=== PATIENT | male | born 1970 | race Caucasian/White ===

== ENCOUNTER 2018-04-06 21:48 | Emergency (ER) | payer BC ==
--- OUTSIDE RECORDS SUMMARY | 2018-04-06 21:49 | XMS REPORT | Clinical Summary ---
:1970 Author Organization [facility] Address [address] [place] [id number] Care Team Providers Name Role Phone Asked, No Pcp Primary Care Provider Unavailable Allergies Not on File Current Medications Not on file Active Problems Not on file Encounters Date Type Specialty Care Team Description 08/31/2017 Office Visit General Surgery Julio Razo, Splenomegaly ( Primary Dx) MD after 04/05/2017 Social History Tobacco Use Types Packs/Day Years Used Date Never Assessed Sex Assigned at Date Recorded Not on file Last Filed Vital Signs Not on file Plan of Treatment Health Maintenance Due Date Last Done Comments INFLUENZA VACCINE 02/07/2018 Results Not on fileafter 04/05/2017 Insurance Payer Benefit Plan / Group Subscriber ID Type Phone Address BCBS BCBS CHOICE PPO/FEDERAL EMPL PPO xxxxxxxxxxxx PPO Home: Natasha vazquez [phone] [facility] [place] [id number]
[2018-04-06 22:43] LABS: Protime INR 1.26
[2018-04-06 22:45] LABS: Absolute Lymphocytes (CBC) 0.4 K/uL (0.7-4.9); Absolute Monocytes 0.3 K/uL (0.1-1.3); Absolute Neutrophil 1.2 K/uL (1.8-8.0); Basophils % 1.3 % (0-1.3); Eosinophils % 9.3 % (0-4.4); Lymphocytes % 18.4 % (15.3-44.8); MCV 88.6 fL (80-100); MPV 7.6 fL (7.6-11.3); Monocytes % 14.9 % (3.3-12.3); RBC Red Blood Cell Count 3.84 M/uL (4.33-5.43)
[2018-04-06 23:01] LABS: ALT/SGPT 19 U/L (12-78); AST/SGOT 28 U/L (15-37); Alkaline Phosphatase 93 U/L (45-117); BUN Blood Urea Nitrogen 8 mg/dL (7-18); Bicarbonate 27 mmol/L (21-32); Bilirubin Direct 0.4 mg/dL (0-0.2); Bilirubin Total 1.1 mg/dL (0.2-1.0); Glucose Level 128 mg/dL (74-106); Magnesium 2.1 mg/dL (1.8-2.4); NT PRO-BNP 45 pg/mL (<125); Potassium 4.1 mmol/L (3.5-5.1); Protein, Total 5.9 g/dL (6.4-8.2); Sodium Level 145 mmol/L (136-145); Troponin (Emerg Dept Use Only) < 0.02 ng/mL (0.0-0.045)
[2018-04-06 23:32] LABS: Blood Morphology Comment NOT SEEN (NOT SEEN); Platelet Estimate DECR; Urine White Blood Cell Casts OK
[2018-04-07] MEDS ORDERED: METHYLPREDNISOLONE 125 MG INJ ONE (00:15)
[2018-04-07] MEDS ORDERED: IPRATROPIUM BROM 0.5MG/2.5ML ONE (00:15)
[2018-04-07] MEDS ORDERED: ALBUTEROL 2.5 MG/3 ML NEB SOL ONE (00:15)
--- NOTE | 2018-04-07 00:47 | EDPHYS ---
Physician Documentation [facility] Name: Lamont Levy Age: 47 yrs Sex: Male : 1970 Arrival Date: 04/06/2018 Time: 21:48 Bed 14 Private MD: ED Physician Edmar Lee HPI: 04/06 22:15 This 47 yrs old Male presents to ER via Ambulatory with complaints of Leg cp Swelling. 22:15 The patient presents with pain, that is acute, swelling, tenderness. The complaints cp affect the left lower leg and right lower leg. Context: the patient can fully bear weight, the patient is able to ambulate, with mild difficulty. Onset: The symptoms/episode began/occurred 3 week(s) ago, and became worse 3 day(s) ago. Associated signs and symptoms: Pertinent negatives fever, numbness, rash, warmth, chest pain, shortness of breath. Treatment prior to arrival includes: no previous treatment. Severity of symptoms: in the emergency department the symptoms are unchanged. Historical: - Allergies: 21:56 NSAIDS; aj - Home Meds: 21:56 benazepril oral oral [Active]; gabapentin oral oral [Active]; Omeprazole Oral [Active]; aj - PMHx: 21:56 sarcoidosis; Hypertension; aj - PSHx: 21:56 Tonsillectomy; knee sx; aj - Immunization history:: Adult Immunizations up to date. - Social history:: Smoking status: Patient/guardian denies using tobacco. - Ebola Screening: : Patient negative for fever greater than or equal to 101.5 degrees Fahrenheit, and additional compatible Ebola Virus Disease symptoms Patient denies exposure to infectious person Patient denies travel to an Ebola-affected area in the 21 days before illness onset No symptoms or risks identified at this time. ROS: 22:20 Constitutional: Negative for body aches, chills, fever, poor PO intake. cp 22:20 Eyes: Negative for injury, pain, redness, and discharge. cp 22:20 ENT: Negative for drainage from ear(s), ear pain, sore throat, difficulty swallowing, difficulty handling secretions. 22:20 Cardiovascular: Positive for edema, Negative for chest pain, palpitations. 22:20 Respiratory: Negative for cough, shortness of breath, wheezing. 22:20 Abdomen/GI: Negative for abdominal pain, nausea, vomiting, and diarrhea, constipation, black/tarry stool, rectal bleeding. 22:20 Back: Negative for pain at rest, pain with movement, radiated pain. 22:20 : Negative for urinary symptoms, testicular pain 22:20 Skin: Negative for rash. 22:20 Neuro: Negative for altered mental status, headache, syncope, near syncope, weakness. 22:20 All other systems are negative. Exam: 22:28 Constitutional: The patient appears in no acute distress, alert, awake, cp non-diaphoretic, non-toxic, well developed, well nourished, overweight 22:28 Head/Face: Normocephalic, atraumatic. Eyes: Pupils equal round and reactive to light, cp extra-ocular motions intact. Lids and lashes normal. Conjunctiva and sclera are non-icteric and not injected. Cornea within normal limits. Periorbital areas with no swelling, redness, or edema. ENT: Nares patent. No nasal discharge, no septal abnormalities noted. Tympanic membranes are normal and external auditory canals are clear. Oropharynx with no redness, swelling, or masses, exudates, or evidence of obstruction, uvula midline. Mucous membranes moist. Neck: Trachea midline, no thyromegaly or masses palpated, and no cervical lymphadenopathy. Supple, full range of motion without nuchal rigidity, or vertebral point tenderness. No Meningismus. Chest/axilla: Normal chest wall appearance and motion. Nontender with no deformity. No lesions are appreciated. 22:28 Cardiovascular: Rate: normal, Rhythm: regular, Edema: ankle edema, that is moderate, JVD: is not appreciated. 22:28 Respiratory: the patient does not display signs of respiratory distress, Respirations: normal, no use of accessory muscles, no retractions, no splinting, no tachypnea, Breath sounds: are clear throughout, no decreased breath sounds, no stridor, no wheezing. 22:28 Abdomen/GI: Inspection: obese Bowel sounds: active, all quadrants, Palpation: abdomen is soft and non-tender, in all quadrants, rebound tenderness, is not appreciated, voluntary guarding, is not appreciated, involuntary guarding, is not appreciated. 22:28 Back: pain, is absent, ROM is normal. 22:28 Musculoskeletal/extremity: Exam is negative for bony tenderness, decreased range of motion, deformity. 22:28 Skin: cellulitis, is not appreciated, no rash present. 22:28 Neuro: Orientation: to person, place \T\ time. Mentation: lucid, able to follow commands, Cerebellar function: is grossly normal, Motor: moves all fours, strength is normal, Sensation: no obvious gross deficits. Vital Signs: 21:56 BP 142 / 77; Pulse 83; Resp 17; Temp 98.4; Pulse Ox 99% on R/A; Weight 123.83 kg; aj Height 5 ft. 10 in. (177.80 cm); 22:55 BP 129 / 49; Pulse 78; Resp 18; Pulse Ox 100% on R/A; ea 04/07 00:45 BP 134 / 69; Pulse 72; Resp 18; Temp 97.7(TE); Pulse Ox 99% on R/A; Pain 0/10; ea 04/06 21:56 Body Mass Index 39.17 (123.83 kg, 177.80 cm) aj MDM: 04/06 21:59 Patient medically screened. cp 22:00 Differential diagnosis: cellulitis, CHF, renal failure, hepatic failure, DVT. 04/07 00:45 Data reviewed: vital signs, nurses notes, lab test result(s), EKG, radiologic studies, cp plain films, ultrasound. 00:45 Test interpretation: by ED physician or midlevel provider: ECG, plain radiologic cp studies. Counseling: I had a detailed discussion with the patient and/or guardian regarding: the historical points, exam findings, and any diagnostic results supporting the discharge/admit diagnosis, lab results, radiology results, the need for outpatient follow up, a family practitioner, a olericulturist, to return to the emergency department if symptoms worsen or persist or if there are any questions or concerns that arise at home. Response to treatment: the patient's symptoms have mildly improved after treatment, and as a result, I will discharge patient. ED course: VSS. Discussed results of labs. Patient stable, non-toxic appearance and no signs of distress. Will discharge to home for continued monitoring. 04/06 22:13 Order name: Basic Metabolic Panel 04/06 22:13 Order name: CBC with Diff 04/06 22:13 Order name: LFT's; Complete Time: 23:26 04/06 23:26 Interpretation: Normal except: BILIT 1.1; BILID 0.4; TP 5.9; ALB 3.0; A/G 1.0. cp 04/06 22:13 Order name: Magnesium; Complete Time: 23:26 cp 04/06 22:13 Order name: NT PRO-BNP; Complete Time: 23:26 cp 04/06 22:13 Order name: PT-INR; Complete Time: 23:26 cp 04/06 22:13 Order name: Troponin (emerg Dept Use Only); Complete Time: 23:26 cp 04/06 22:13 Order name: XRAY Chest (1 view) cp 04/06 22:13 Order name: US Extremity Venous W Compression Blue cp 04/06 22:13 Order name: Basic Metabolic Panel; Complete Time: 23:26 EDMS 04/06 23:44 Interpretation: Normal except: CL 110; GLUC 128; GFR 79. 04/06 22:13 Order name: CBC with Automated Diff; Complete Time: 23:44 EDMS 04/06 23:26 Interpretation: Normal except: WBC 2.2; RBC 3.84; HGB 11.9; HCT 34.0; PLT 60; MN% 14.9; cp EOSINOPHIL % 9.3; NEUT A 1.2; LYMA 0.4. 04/06 23:33 Order name: CBC Smear Scan; Complete Time: 23:44 EDMS 04/06 23:49 Order name: AMMONIA 04/06 23:50 Order name: Ammonia; Complete Time: 00:26 EDMS 04/07 00:27 Interpretation: Abnormal: JEAN CLAUDE 60; Reviewed. 04/06 22:13 Order name: EKG; Complete Time: 22:14 04/06 22:13 Order name: Cardiac monitoring; Complete Time: 22:51 cp 04/06 22:13 Order name: EKG - Nurse/Tech; Complete Time: 22:51 cp 04/06 22:13 Order name: IV Saline Lock; Complete Time: 22:51 cp 04/06 22:13 Order name: Labs collected and sent; Complete Time: 22:51 cp 04/06 22:13 Order name: O2 Per Protocol; Complete Time: 22:51 cp 04/06 22:13 Order name: O2 Sat Monitoring; Complete Time: 22:51 cp EC/28 22:50 Rate is 77 beats/min. Rhythm is regular. ME interval is normal. QRS interval is normal. cp QT interval is normal. Interpreted by me. Reviewed by me. Administered Medications: No medications were administered Disposition: 04/07 06:38 Co-signature as Attending Physician, Edmar Lee MD I agree with the assessment and [facility] plan of care. Disposition: 04/07/18 00:46 Discharged to Home. Impression: Edema, unspecified, Liver disorders in diseases classified elsewhere. - Condition is Stable. - Discharge Instructions: Edema. - Prescriptions for Lasix 20 mg Oral Tablet - take 1 tablet by ORAL route once daily; 20 tablet. Lactulose 10 gram/15 mL Oral Solution - take 30 milliliter by ORAL route once daily; 300 milliliter. - Medication Reconciliation Form, Thank You Letter, Antibiotic Education, Prescription Opioid Use form. - Follow up: Private Physician; When: 2 - 3 days; Reason: Recheck today's complaints. - Problem is new. - Symptoms have improved. Signatures: Dispatcher [employer] EDSandhya Mendes, RN Edmar Castanon MD MD cha Page, Corey, PA PA Shireen Mares RN RN ea Corrections: (The following items were deleted from the chart) 00:27 00:26 Reviewed. cp cp 00:59 00:46 04/07/2018 00:46 Discharged to Home. Impression: Edema, unspecified; Liver ea disorders in diseases classified elsewhere. Condition is Stable. Prescriptions for Lasix 20 mg Oral Tablet - take 1 tablet by ORAL route once daily; 20 tablet, Lactulose 10 gram/15 mL Oral Solution - take 30 milliliter by ORAL route once daily; 300 milliliter. and Forms are Medication Reconciliation Form, Thank You Letter, Antibiotic Education, Prescription Opioid Use. Follow up: Private Physician; When: 2 - 3 days; Reason: Recheck today's complaints. Problem is new. Symptoms have improved. cp
--- NOTE | 2018-04-07 00:47 | ER ---
Nurse's Notes [facility] Name: Lamont Levy Age: 47 yrs Sex: Male : 1970 Arrival Date: 04/06/2018 Time: 21:48 Bed 14 Private MD: Diagnosis: Edema, unspecified;Liver disorders in diseases classified elsewhere Presentation: 04/06 21:54 Presenting complaint: Patient states: Bilateral leg swelling for 3 days. Transition of care: patient was not received from another setting of care. Onset of symptoms was April 03, 2018. Risk Assessment: Do you want to hurt yourself or someone else? Patient reports no desire to harm self or others. Initial Sepsis Screen: Does the patient meet any 2 criteria? No. Patient's initial sepsis screen is negative. Does the patient have a suspected source of infection? No. Patient's initial sepsis screen is negative. Care prior to arrival: None. 21:54 Method Of Arrival: Ambulatory 21:54 Acuity: LAYA 3 aj Triage Assessment: 21:56 General: Appears in no apparent distress. comfortable, Behavior is calm, cooperative, aj appropriate for age. Pain: Denies pain. Neuro: Level of Consciousness is awake, alert, obeys commands, Oriented to person, place, time, situation, Appropriate for age. Cardiovascular: Edema is 1+ to left midcalf, left ankle, left foot, right midcalf, right ankle and right foot. Respiratory: Airway is patent Respiratory effort is even, unlabored, Respiratory pattern is regular, symmetrical. Derm: Skin is intact, is healthy with good turgor, Skin is pink, warm \\T\\ dry. normal. Historical: - Allergies: 21:56 NSAIDS; aj - Home Meds: 21:56 benazepril oral oral [Active]; gabapentin oral oral [Active]; Omeprazole Oral [Active]; aj - PMHx: 21:56 sarcoidosis; Hypertension; aj - PSHx: 21:56 Tonsillectomy; knee sx; aj - Immunization history:: Adult Immunizations up to date. - Social history:: Smoking status: Patient/guardian denies using tobacco. - Ebola Screening: : Patient negative for fever greater than or equal to 101.5 degrees Fahrenheit, and additional compatible Ebola Virus Disease symptoms Patient denies exposure to infectious person Patient denies travel to an Ebola-affected area in the 21 days before illness onset No symptoms or risks identified at this time. Screenin:12 Abuse screen: Denies threats or abuse. Nutritional screening: No deficits noted. ea Tuberculosis screening: No symptoms or risk factors identified. Fall Risk None identified. Assessment: 22:08 General: Appears in no apparent distress. Behavior is calm, cooperative, appropriate ea for age. Pain: Complains of pain in low back area Pain currently is 3 out of 10 on a pain scale. Quality of pain is described as aching. Neuro: Level of Consciousness is awake, alert, obeys commands, Oriented to person, place, time, situation. Cardiovascular: Heart tones S1 S2 present Patient's skin is warm and dry. Respiratory: Airway is patent Respiratory effort is even, unlabored, Respiratory pattern is regular, symmetrical, Breath sounds are clear bilaterally. GI: No signs and/or symptoms were reported involving the gastrointestinal system. : No signs and/or symptoms were reported regarding the genitourinary system. EENT: No signs and/or symptoms were reported regarding the EENT system. Derm: Skin is dry, Skin is normal, Skin temperature is warm 1 + pitting edema noted to [place] lower extremities. Weeping noted to right lower extremity. Pt states " I have had swelling for the last couple days but the leaking started today". 23:16 Reassessment: Patient and/or family updated on plan of care and expected duration. Pain ea level reassessed. Patient is alert, oriented x 3, equal unlabored respirations, skin warm/dry/pink. 04/07 00:56 Reassessment: Patient and/or family updated on plan of care and expected duration. Pain ea level reassessed. Patient is alert, oriented x 3, equal unlabored respirations, skin warm/dry/pink. Discharge instructions given to patient, verbalized the understanding of instruction. Patient states feeling better. Patient states symptoms have improved. Vital Signs: 04/06 21:56 BP 142 / 77; Pulse 83; Resp 17; Temp 98.4; Pulse Ox 99% on R/A; Weight 123.83 kg; aj Height 5 ft. 10 in. (177.80 cm); 22:55 BP 129 / 49; Pulse 78; Resp 18; Pulse Ox 100% on R/A; ea 04/07 00:45 BP 134 / 69; Pulse 72; Resp 18; Temp 97.7(TE); Pulse Ox 99% on R/A; Pain 0/10; ea 04/06 21:56 Body Mass Index 39.17 (123.83 kg, 177.80 cm) ED Course: 04/06 21:48 Patient arrived in ED. ds1 21:55 Triage completed. aj 21:56 Arm band placed on right wrist. Patient placed in an exam room. aj 21:59 Edmar Jose PA is PHCP. cp 21:59 Edmar Lee MD is Attending Physician. cp 22:00 Shireen Hummel, RN is Primary Nurse. ea 22:12 Patient has correct armband on for positive identification. Bed in low position. Call ea light in reach. Side rails up X 1. 22:20 Inserted saline lock: 20 gauge in right antecubital area, using aseptic technique. ea Blood collected. 22:25 XRAY Chest (1 view) In Process Unspecified. EDMS 22:51 Ultrasound completed. Patient tolerated well. cy 22:51 US Extremity Venous W Compression [place] In Process Unspecified. EDMS 04/07 00:02 AMMONIA Sent. mw2 00:55 No provider procedures requiring assistance completed. IV discontinued, intact, ea bleeding controlled. Administered Medications: No medications were administered Outcome: 00:46 Discharge ordered by . cp 00:56 Condition: improved ea 00:56 Discharge instructions given to patient, Instructed on discharge instructions, follow up and referral plans. medication usage, Demonstrated understanding of instructions, follow-up care, medications, Prescriptions given X 2. 00:58 Discharged to home ambulatory. ea 00:59 Patient left the ED. ea Signatures: Dispatcher [employer] EDVT Sandhya Feliciano, RN Tsering Nguyen ds1 Edmar oJse PA PA cp Antunez, Elena, RN Chante Cullen ea, MyKena mw2
--- NOTE | 2018-04-07 07:46 | RAD REPORT ---
EXAM DESCRIPTION: US - Extrem Venous W Compress Blue - 04/06/2018 10:51 pm CLINICAL HISTORY: Bilateral leg pain and swelling Preliminary findings provided at the time of the study COMPARISON: None. TECHNIQUE: Real-time sonographic evaluation of the bilateral lower extremity common femoral, superfi cial femoral, popliteal and posterior tibial veins was performed. FINDINGS: Normal compressibility, flow augmentation, phasic flow and spontaneous flow are identified in the left and right lower extremity common femoral, superficial femoral, popliteal and posterior t ibial veins. No intraluminal filling defects seen. IMPRESSION: No DVT in either lower extremity.
--- NOTE | 2018-04-07 08:24 | RAD REPORT ---
EXAM DESCRIPTION: RAD - Chest Single View - 04/06/2018 10:24 pm CLINICAL HISTORY: Shortness of breath, leg pain and swelling COMPARISON: August 18 TECHNIQUE: AP portable chest image was obtained 2218 hours . FINDINGS: Lung volumes are low. This accentuates lung markings. True change from the comparison not suspected. No focal lung parenchymal process. Heart and vasculature are normal. No measurable pleural effusion and no pneumothorax. No gross bony abnormality seen. No acute aortic findings suspected. IMPRESSION: Shallow inspiration film without acute cardiopulmonary finding. No significant change from comparison.
--- NOTE | 2018-04-08 06:46 | EKG ---
Test Date: 2018-04-06 Test Time: 22:46:19 Orthopedic Dentist: BP MEASUREMENT RESULTS: Intervals: Rate: 77 TN: 178 QRSD: 92 QT: 424 QTc: 479 [place]: P: 22 TN: 178 QRS: -15 T: 3 INTERPRETIVE STATEMENTS: Normal sinus rhythm Moderate voltage criteria for LVH, may be normal variant Borderline ECG Compared to ECG 08/18/2017 22:24:38 No significant changes Electronically Signed On 04-08-18 06:45:20 CDT by Pavan Sanchez
== END 2018-04-07 00:59 | disposition home or self-care (01) ==
LOC: ER 21:48
DX: K77 Liver disorders in diseases classified elsewhere (principal); I10 Essential (primary) hypertension; Z88.6 Allergy status to analgesic agent
CPT/HCPCS: 36415; 71045; 80048; 80076; 82140; 83735; 83880; 84484; 85025; 85610; 93005; 93970; 99284; J2930

== ENCOUNTER 2020-02-05 06:43 | Day surgery (SDC) | payer OTHER ==
[2020-02-03 13:32] LABS: Absolute Lymphocytes (CBC) 0.5 K/uL (0.7-4.9); Basophils % 1.1 % (0-1.3); Hematocrit 37.9 % (39.6-49.0); Lymphocytes % 18.7 % (15.3-44.8); RBC Red Blood Cell Count 4.36 M/uL (4.33-5.43)
[2020-02-03 13:46] LABS: Potassium 3.5 mmol/L (3.5-5.1)
[2020-02-03 14:23] LABS: Anisocytosis 1+; Blood Morphology Comment NOTED (NOT SEEN); Platelet Estimate DECR; Urine White Blood Cell Casts OK
--- OUTSIDE RECORDS SUMMARY | 2020-02-05 06:45 | XMS REPORT | Continuity of Care Document ---
:1970 Author Organization [facility] t Address [address] [place] [address] Care Team Providers Name Role Phone Andra Booth MD Primary Care Physician Grace Hernandez MD Attending Clinician Zaida Javier Attending Clinician Payers Payer Name Policy Type Policy Number Effective Date Expiration Date S nerissa AETNAAETNA PPO xxxxxxxxxx 2019 [place] OPEN 00:00:00 [place] CHOICExxxxxxxxxx 2019-Present PPO Problems This patient has no known problems. Allergies, Adverse Reactions, Alerts Allergy Allergy Status Severity Reaction(s) Onset Inactive Treating Comm ents Source Name Type Date Date Clinician Ibuprofe Propensi Active Rash [place] ty to 01-27 [facility] adverse 00:00: st reaction 00 s to drug Social History Social Habit Start Date Stop Date Quantity Comments Source Sex Assigned At [place] M ethodist Cigarettes smoked 2019-11-05 2019-11-05 [place] [facility] current (pack per 00:00:00 00:00:00 day) - Reported Cigarette 2019-11-05 2019-11-05 [place] Method ist pack-years 00:00:00 00:00:00 Alcohol intake 2019-11-05 2019-11-05 Lifetime [place] [facility] thodist 00:00:00 00:00:00 non-drinker (finding) History of tobacco 1989-02-07 1995-06-09 Current smoker Juan rhodes [facility] use 00:00:00 00:00:00 Smoking Status Start Date Stop Date Source Former smoker 2019-11-05 00:00:00 2019-11-05 00:00:00 Rakan Su Medications Ordered Filled Start Stop Current Ordering Indication Dosage Frequency Signature Comments Components Source Medication Medication Date Date Medication? Clinician (SIG) Name Name methylPREDN Yes Chronic 40mg Venkatesh ston ISolone 11-04 left [facility] acetate 15:30: shoulder st (DEPO-MEDRO 00 pain L) injection 40 mg meloxicam 15mg QD Take 1 [place] on (Mobic) 15 11-04 tablet (15 Me thodi mg tablet 00:00: 23:59 mg total) st 00 :00 by mouth daily. Flucelvax Yes ADM 0.5ML Venkatesh ston Quad 3-11 IM UTD Methodi 00:00: st 60 mcg (15 00 mcg x 4)/0.5 mL suspension KLOR-CON 10 2017-07 Yes 10meq QD Take 10 [place] 10 mEq CR 0-12 mEq by [facility] tablet 00:00: mouth st 00 daily. acetaminoph 2017-07 Yes 650mg Take 650 [place] en 0-12 mg by [facility] (TYLENOL) 00:00: mouth. st 650 MG 8 hr 00 tablet benazepril 2017-07 Yes 10mg QD Take 10 mg [place] (LOTENSIN) 0-01 by mouth Metho di 10 MG 00:00: daily. st tablet 00 furosemide Yes 20mg QD Take 20 mg [place] (LASIX) 20 9-29 by mouth Metho di mg tablet 00:00: daily. st 00 lactulose Yes TK 30 ML [place] (CHRONULAC) 9-29 PO D. Methodi 10 gram/15 00:00: st mL solution 00 gabapentin Yes 1 tablet Venkatesh ston (NEURONTIN) 9-10 BID x 3 Metho di 300 mg 00:00: days, then st capsule 00 1 tablet TID x 3 days. Increase by 300 mg starting at night time dose x 3 days. Goal 600 mg TID. omeprazole Yes 40mg Take 40 mg [place] (PriLOSEC) 5-30 by mouth. Meth melanie 40 MG 00:00: st capsule 00 Vital Signs Vital Name Observation Time Observation Value Comments Source Body height 2019-11-05 15:09:00 179.1 cm Rakan Su Body weight 2019-11-05 15:09:00 117.935 kg Rakan Su BMI 2019-11-05 15:09:00 36.78 kg/m2 Rakan Su Procedures Procedure Date / Time Performing Clinician Source Performed XR SHOULDER 2+ VW LEFT 2019-11-05 15:17:15 Sly Hernandez on [facility] [place] ARTHROCENTESIS 2019-11-05 14:50:00 Sly Hernandez Me thodist ASPIR&/INJ MAJOR JT/BURSA W/O Plan of Care Planned Activity Planned Date Details Comments Source Future Scheduled 2020-02-08 INFLUENZA VACCINE [place] [facility] Test 00:00:00 [code = INFLUENZA VACCINE] Future Scheduled 2018 COLONOSCOPY SCREENING [place] [facility] Test 00:00:00 [code = COLONOSCOPY SCREENING] Future Scheduled 2018 SHINGLES VACCINES [place] [facility] Test 00:00:00 (#1) [code = SHINGLES VACCINES (#1)] Encounters Start End Encounter Admission Attending Care Care Encounter Source Date/Time Date/Time Type Type Clinicians Facility Department ID 2019-11-05 2019-11-05 [facility] [id number] [place] 00:00:00 00:00:00 SLY [address] 2019-11-05 2019-11-05 [facility] [id number] [place] 00:00:00 00:00:[address] S[address] 2019-09-20 2019-09-20 Office [facility] [id number] 14:28:36 15:45:21 Visit [employer] [id number] [place] [id number] Professio [id number] nal 044 Office Building One Results Test Description Test Time Test Comments Results Result Sourc e Comments Large Joint 2019-10-10 Sly Hernandez MD [place] Arthrocentesis: 8 11/05/2019 3:29 Met adali shoulder, L 14:50:00 PMLarge Joint subacromial Arthrocentesis: bursa shoulder, L subacromial bursaConsent given by: patientTimeout: Immediately prior to procedure a time out was called to verify the correct patient, procedure, equipment, clinical support specialist and site/side marked as required Supporting DocumentationIndicatio ns: pain Procedure DetailsPreparation: Patient was prepped and draped in the usual sterile fashionUltrasound guided: noLocation: shoulder - L subacromial bursa Left side:Needle size: 22 GApproach: lateral
--- OUTSIDE RECORDS SUMMARY | 2020-02-05 06:45 | XMS REPORT | Clinical Summary ---
:1970 Author Organization [facility] Address [address] [place] [address] Care Team Providers Name Role Phone Andra Booth MD Primary Care Provider Allergies Active Allergy Reactions Severity Noted Date Comments Ibuprofen Rash High 01/27/2017 Medications Medication Sig Dispensed Refills Start Date End Date Status benazepril (LOTENSIN) Take 10 mg by 0 04/09/2018 Active 10 MG tablet mouth daily. furosemide (LASIX) 20 Take 20 mg by 0 04/07/2018 Active mg tablet mouth daily. gabapentin (NEURONTIN) 1 tablet BID x 3 0 03/19/2018 Active 300 mg capsule days, then 1 tablet TID x 3 days. Increase by 300 mg starting at night time dose x 3 days. Goal 600 mg TID. omeprazole (PriLOSEC) Take 40 mg by 0 12/06/2017 Active 40 MG capsule mouth. KLOR-CON 10 10 mEq CR Take 10 mEq by 0 04/20/2018 Active tablet mouth daily. lactulose (CHRONULAC) TK 30 ML PO D. 0 04/07/2018 Active 10 gram/15 mL solution acetaminophen Take 650 mg by 0 04/20/2018 Active (TYLENOL) 650 MG 8 hr mouth. tablet Flucelvax Quad ADM 0.5ML IM UTD 0 09/18/2019 Active 1156-7639 60 mcg (15 mcg x 4)/0.5 mL suspension meloxicam (Mobic) 15 Take 1 tablet 30 tablet 11 11/05/201910/09 Active mg tablet (15 mg total) by mouth daily. Hospital, Clinic, or Other Ordered Dose Route Frequency Start Date End Date Status Facility Administered Medication methylPREDNISolone acetate 40 mg IAtc once 11/05/2019 Active (DEPO-MEDROL) injection 40 mgIndications: Chronic left shoulder pain Active Problems Not on file Encounters Date Type Specialty Care Team Description 11/05/2019 Office Visit Orthopedic Surgery [facility], Chron ic left shoulder pain (Primary Dx); Impingement syn drome of left shoulder 11/05/2019 Travel after 02/04/2019 Family History Patient is adopted Relation Name Status Comments Father Mother Son 2 Alive Social History Tobacco Use Types Packs/Day Years Used Date Former Smoker Cigarettes 1 6 02/07/1989 - 1 08/10/1994 Smokeless Tobacco: Never Used Alcohol Use Drinks/Week oz/Week Comments Never Sex Assigned at Date Recorded Not on file Job Start Date Occupation Industry Not on file Not on file Not on file Travel History Travel Start Travel End No recent travel history available. Last Filed Vital Signs Vital Sign Reading Time Taken Comments Blood Pressure - - Pulse - - Temperature - - Respiratory Rate - - Oxygen Saturation - - Inhaled Oxygen Concentration - - Weight 118 kg (260 lb) 11/05/2019 3:09 PM CDT Height 179.1 cm (5' 10.5") 11/05/2019 3:09 PM CDT Body Mass Index 36.78 11/05/2019 3:09 PM CDT Plan of Treatment Health Maintenance Due Date Last Done Comments COLONOSCOPY SCREENING 2018 SHINGLES VACCINES (#1) 2018 INFLUENZA VACCINE 02/08/2020 Procedures Procedure Name Priority Date/Time Associated Comments Diagnosis XR SHOULDER 2+ VW LEFT Routine 11/05/2019 3:17 Chronic left R esults for this PM CDT shoulder pain procedure are in the results section. MA ARTHROCENTESIS Routine 11/05/2019 2:50 Chronic left Result s for this ASPIR&/INJ MAJOR PM CDT shoulder pain procedure are in JT/BURSA W/O US Impingement the results syndrome of left section. shoulder after 02/04/2019 Results XR Shoulder 2+ Vw Left (11/05/2019 3:17 PM CDT) Specimen Narrative Performed At This result has an attachment that is no t available. 3 views (AP, scapular Y, axillary) of the left shoulder(s) reveal no HM [facility] evidence of any fracture, dislocation, or any other ac akira osseous abnormalities. Performing Organization Address City/State/Zipcode Phone Number [facility] [address] [place] [address] Large Joint Arthrocentesis: shoulder, L subacromial bursa (11/05/2019 2:50 PM CDT) Narrative Performed At [facility], Tristan Edwards MD 11/05/2019 3: 29 PM Large Joint Arthrocentesis: shoulder, L subacromial bursa Consent given by: patient Timeout: Immediately prior to procedure a time out was called to verify the correct patient, procedure, equipmen t, cell support operator and site/side marked as required Supporting Documentation Indications: pain Procedure Details Preparation: Patient was prepped and ashely ped in the usual sterile fashion Ultrasound guided: no Location: shoulder - L subacromial bursa Left side: Needle size: 22 G Approach: lateral after 02/04/2019 Advance Directives For more information, please contact: [phone] Type Date Recorded 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
[2020-02-05] MEDS ORDERED: Ringers Lactate 1,000 ML IV ONE (07:25)
[2020-02-05] MEDS ORDERED: MIDAZOLAM HCL 2 MG/2 ML INJ ONE (07:26)
[2020-02-05] MEDS ORDERED: LIDOCAINE 2% MPF 5 ML VIAL ONE (07:26)
[2020-02-05] MEDS ORDERED: FENTANYL CITR 100 MCG/2 ML ONE ×3 (07:26→09:45)
[2020-02-05] MEDS ORDERED: propofoL 200 MG/20 ML VIAL IV ONE (07:26)
[2020-02-05] MEDS ORDERED: CEFAZOLIN/SWI 1gm 0 GM/0 ML SYR ONE (07:51)
[2020-02-05] MEDS ORDERED: BUPIVACAINE 0.5% PF 10 ML VIAL ONE (08:42)
[2020-02-05] MEDS ORDERED: CIPROFLOXACIN 400mg IV 400 MG/200 ML BAG IV ONE (08:49)
[2020-02-05] MEDS ORDERED: KETOROLAC 30 MG/ML INJ ONE (09:16)
[2020-02-05] MEDS ORDERED: dexAMETHasone 10 MG/ML VIAL ONE (09:16)
[2020-02-05] MEDS ORDERED: ONDANSETRON 4 MG/2 ML VIAL ONE (09:17)
[2020-02-05] MEDS ORDERED: SILVER SULFADIAZINE 1% 25 GM TOP ONE (09:28)
--- NOTE | 2020-02-05 09:58 | P.BOP ---
Preoperative diagnosis: ulcerated non healing wound with cellultitis with extensive masses Postoperative diagnosis: bilateral groin, perineum, suprapubic and sacrum, Primary procedure: 1. Wide excision of ulcerated masses right groin 25x4 cm Secondary procedure: 2. Wide excision of ulcerated masses left groin 15x5 cm Other procedure(s): 3. Wide excision of ulcerated masses perineum groin 4x4 cm Crystal Grower: Jane Mariano) Estimated blood loss: <50cc Specimen: ulcerated masses Findings: see dictation Anesthesia: General Complications: None Transferred to: Recovery Room Condition: Good
[2020-02-05] MEDS ORDERED: HYDROMORPHONE HCL 1 MG/ML INJ ONE (10:20)
[2020-02-05] MEDS ORDERED: HYDROCODONE/APAP 7.5/325 MG TAB ONE (11:12)
[2020-02-05] MEDS ORDERED: PROMETHAZINE INJ 25 MG/ML AMP ONE (11:16)
[2020-02-05 11:29] VITALS: TEMP 97.7
[2020-02-05 14:08] VITALS: BP 118/68; O2SAT 98
--- NOTE | 2020-02-05 22:10 | DS ---
Date of Discharge: 02/05/2020 Diagnoses: Ulcerated nonhealing wounds with cellulitis and extensive amount of masses over the groin , perineum, suprapubic and sacrum. Procedure: Wide excision of a nonhealing ulcerative masses over those areas as mentioned. Disposition: Home. Activity: As tolerated. Medications: Include hydrocodone q.4 hours p.r.n. pain and also Silvadene to apply over that area an d Bactrim DS p.o. b.i.d. The patient's family believes they can do the dressing changes. They were advised by any chance they cannot do so, then let us know so we can arrange for home health agencies to go there but he believe he can do it and we will see the patient in 1 week in my office. MAYRA Voice ID: [id number] Report ID: [id number]
--- NOTE | 2020-02-05 22:10 | OP ---
Date of Procedure: 02/05/2020 Surgeon: Andrew Ghotra MD Horticulture/Floriculture Teacher: Jane Childress. 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 Procedures: 1.Wide excision of ulcerative masses right groin 25 x 4 cm that include also the suprapubic area. 2.Wide excision of ulcerative mass of left groin, 15 x 5 cm. 3.Wide excision of ulcerative masses perineum, 4 x 4 cm. Anesthesia: General plus local. Indication: This is a case of a 49-year-old patient with multiple masses, bilateral groin is extensi ve, perineal area to perianal, little bit of sacrum too. He had biopsies done in one of the areas, p reviously shows HPV virus, but then after that the patient developed this cellulitis of the area with nonhealing wounds. It has been getting worse extending into the groin area, now this become an issu e of not just the previous masses, but now ulcerative masses also with the sign of infection. He wan ts that out. He understands the emergency situation we are going through the country, but at the brad e time is a source of infection and they are not healing and getting worse. So, he want a wide excis ion of those areas. I explained to him I may not be able to cover everything at the same time specia lly when he has history of low platelets. We are trying to remove the main once, the big once in lisa t area, all the once that looks with erythema and ulceration and this will leave a large open area th at will require dressing changes. He understand that. We might have to do this in stages. He under stand the benefits, alternatives, and risks of excision, which include, but not limited to infection, bleeding, damage to adjacent structures, anesthesia complication, nonhealing wound, [place], and even janiya th. He also understands this may not relieve his symptoms. He might need more than one surgical int ervention. He signed a consent. Description Of Procedure: The area of concern was marked by me on the patient in the holding room. The patient was brought to the operating room, placed in supine position. Anesthesia was done withou t complication. The perineum, perianal, sacrum and bilateral groin area and suprapubic were prepped and draped in sterile fashion. Local anesthesia was applied followed by wide excision of the area. Once again as we described above the size of it, there are so many all together that we have to remov e segments of a skin to be able to take those masses all in 1 unit, since individually it was too man y to do individually. So that left a large areas underneath and we obtained meticulous hemostasis of the area, profuse irrigation of local anesthetic. It was done over the suprapubic, right groin, lef t groin, perineal area and some of the sacrum. Some other areas may have to be postponed since we arellano ve a large area, we have bleeding and I believe at this moment it is what we can do in a safe fashion . That will take care of all the ulcerations to be make sure out to be checked for any ma lignancy too. He understood that in advance. The area was covered with silvadene and wet-to-dry maki ssing and covered with sterile dressings. The patient tolerated the procedure well. The patient was sent to recovery in stable condition. MAYRA Voice ID: [id number] Report ID: [id number]
== END 2020-02-05 12:30 | disposition home or self-care (01) ==
LOC: OR 06:43
PROVIDERS: ATTEND Surgery
PROC: 0JBB0ZZ Excision of Perineum Subcutaneous Tissue and Fascia, Open Approach (ICD-10-PCS; 2020-02-05)
PROC: 0HBAXZZ Excision of Inguinal Skin, External Approach (ICD-10-PCS; principal; 2020-02-05 09:00)
DX: R22.2 Localized swelling, mass and lump, trunk (principal); S31.104A Unspecified open wound of abdominal wall, left lower quadrant without penetration into peritoneal cavity, initial encounter; S31.103A Unspecified open wound of abdominal wall, right lower quadrant without penetration into peritoneal cavity, initial encounter; S31.501A Unspecified open wound of unspecified external genital organs, male, initial encounter; S31.000A Unspecified open wound of lower back and pelvis without penetration into retroperitoneum, initial encounter; L03.314 Cellulitis of groin; A63.0 Anogenital (venereal) warts; L82.1 Other seborrheic keratosis; I10 Essential (primary) hypertension; E66.01 Morbid (severe) obesity due to excess calories; Z68.38 Body mass index [BMI] 38.0-38.9, adult; Z88.6 Allergy status to analgesic agent; Z22.4 Carrier of infections with a predominantly sexual mode of transmission; Z11.59 Encounter for screening for other viral diseases
CPT/HCPCS: 11424; 93005; 85025; 80048; 36415; 88305; 71046; 11406 ×2; U0002; J2704; J2550; J2250; J3010 ×3; J1100; J1170; J7120; J2405; J0744; J0690

== ENCOUNTER 2020-02-22 21:14 | Emergency (ER) | payer OTHER, SELFPAY ==
--- OUTSIDE RECORDS SUMMARY | 2020-02-22 21:16 | XMS REPORT | Clinical Summary ---
:1970 Author Organization [facility] Address [address] [place] [address] Care Team Providers Name Role Phone Andra [...] ADM 0.5ML IM UTD 0 09/18/2019 Active 2554-0048 60 mcg (15 mcg x 4)/0.5 mL [...] drome of left shoulder 11/05/2019 Travel after 02/21/2019 Family History Patient is adopted Relation Name [...] 2018 SHINGLES VACCINES (#1) 2018 INFLUENZA VACCINE 03/10/2020 Procedures Procedure Name Priority Date/Time Associated Comments Diagnosis XR SHOULDER 2+ VW LEFT Routine 11/05/2019 3:17 Chronic left R esults for this PM CDT shoulder pain procedure are in the results section. CT ARTHROCENTESIS Routine 11/05/2019 2:50 Chronic left Result s for this ASPIR&/INJ MAJOR PM CDT shoulder pain procedure are in JT/BURSA W/O US Impingement the results syndrome of left section. shoulder after 02/21/2019 Results XR Shoulder 2+ Vw Left (11/05/2019 3:17 PM CDT) Specimen Narrative Performed At This result has an attachment that is no t available. 3 views (AP, scapular Y, axillary) of the left shoulder(s) reveal no HM [facility] evidence of any fracture, dislocation, or any other ac akira osseous abnormalities. Performing Organization Address City/State/Zipcode Phone Number [facility] [address] [place] [address] Large Joint Arthrocentesis: shoulder, L subacromial bursa (11/05/2019 2:50 PM CDT) Narrative Performed At [facility], Tristan Edwards MD 11/05/2019 3: 29 PM Large Joint Arthrocentesis: shoulder, L subacromial bursa Consent given by: patient Timeout: Immediately prior to procedure a time out was called to verify the correct patient, procedure, equipmen t, retail support specialist and site/side marked as required Supporting Documentation Indications: pain Procedure Details Preparation: Patient was prepped and ashely ped in the usual sterile fashion Ultrasound guided: no Location: shoulder - L subacromial bursa Left side: Needle size: 22 G Approach: lateral after 02/21/2019 Advance Directives For more information, please contact: [phone] Type Date Recorded 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
--- OUTSIDE RECORDS SUMMARY | 2020-02-22 21:17 | XMS REPORT | Continuity of Care Document ---
:1970 Author Organization [facility] t Address [address] [place] [address] Care Team Providers Name Role Phone Andra Booth MD Primary Care Physician Grace Hernandez MD Attending Clinician Zaida Javier Attending Clinician Payers Payer Name Policy Type Policy Number Effective Date Expiration Date S nerissa AETNAAETNA PPO xxxxxxxxxx 2019 [place] OPEN 00:00:00 Jain CHOICExxxxxxxxxx 2019-Present PPO Problems This patient has no known problems. Allergies, Adverse Reactions, Alerts Allergy Allergy Status Severity Reaction(s) Onset Inactive Treating Comm ents Source Name Type Date Date Clinician Ibuprofe Propensi Active Rash [place] ty to 01-27 [facility] adverse 00:00: st reaction 00 s to drug Social History Social Habit Start Date Stop Date Quantity Comments Source Sex Assigned At [place] [facility] Cigarettes smoked 2019-11-05 2019-11-05 [place] Jain current (pack per 00:00:00 00:00:00 day) - Reported Cigarette 2019-11-05 2019-11-05 [place] Method ist pack-years 00:00:00 00:00:00 Alcohol intake 2019-11-05 2019-11-05 Lifetime [place] [facility] 00:00:00 00:00:00 non-drinker (finding) History of tobacco 1989-02-07 1995-06-09 Current smoker Juan rhodes Jain use 00:00:00 00:00:00 Smoking Status Start Date [...] VW LEFT 2019-11-05 15:17:15 Sly Hernandez on Jain AL ARTHROCENTESIS 2019-11-05 14:50:00 Sly Hernandez [facility] ASPIR&/INJ MAJOR JT/BURSA W/O Plan of Care Planned Activity Planned Date Details Comments Source Future Scheduled 2020-03-10 INFLUENZA VACCINE [place] [facility] Test 00:00:00 [code = INFLUENZA VACCINE] Future Scheduled 2018 COLONOSCOPY SCREENING [place] [facility] Test 00:00:00 [code = COLONOSCOPY SCREENING] Future Scheduled 2018 SHINGLES VACCINES [place] [facility] Test 00:00:00 (#1) [code = SHINGLES VACCINES (#1)] Encounters Start End Encounter Admission Attending Care Care Encounter Source Date/Time Date/Time Type Type Clinicians Facility Department ID 2019-11-05 2019-11-[address] [facility] [id number] [address] [place] 00:00:00 00:00:[address] 2019-11-05 2019-11-05 [facility] [id number] [address] [place] 00:00:00 00:00:[address] 2019-09-20 2019-09-20 Office [facility] [id number] 14:28:36 15:45:21 Visit [facility] [id number] [place] [id number] Professio [phone] nal 044 Office Building One Results Test Description Test Time Test Comments Results Result Sourc e Comments Large Joint 2019-10-10 Sly Hernandez MD [place] Arthrocentesis: 8 11/05/2019 3:29 Met adali shoulder, L 14:50:00 PMLarge Joint subacromial Arthrocentesis: bursa shoulder, L subacromial bursaConsent given by: patientTimeout: Immediately prior to procedure a time out was called to verify the correct patient, procedure, equipment, phlebotomy support tech and site/side marked as required Supporting DocumentationIndicatio ns: pain Procedure DetailsPreparation: Patient was prepped and draped in the usual sterile fashionUltrasound guided: noLocation: shoulder - L subacromial bursa Left side:Needle size: 22 GApproach: lateral
[2020-02-22] MEDS ORDERED: LIDOCAINE VISCOUS 2% SOLN 15 ML UDC ONE (22:00)
[2020-02-22] MEDS ORDERED: DIAZEPAM 5 MG TABLET ONE (22:07)
--- NOTE | 2020-02-22 22:29 | ER ---
Nurse's Notes [facility] Name: Lamont Levy Age: 49 yrs Sex: Male : 1970 Arrival Date: 02/22/2020 Time: 21:17 Bed 18 Private MD: Diagnosis: Encounter for change or removal of surgical wound dressing Presentation: 02/21 21:36 Chief complaint: Patient states: "I had a group of warts removed on February 04, my vc has been packing it every night at seven, well tonight the packing is stuck and won't come out. I even tried getting in the shower to remove it and it wouldn't come out. I have a low platelet count so I was afraid of it bleeding to much if I kept pulling on it.". Coronavirus screen: At this time, the client does not indicate any symptoms associated with coronavirus-19. Ebola Screen: No symptoms or risks identified at this time. Initial Sepsis Screen: Does the patient meet any 2 criteria? HR > 90 bpm. No. Patient's initial sepsis screen is negative. Does the patient have a suspected source of infection? No. Patient's initial sepsis screen is negative. Risk Assessment: Do you want to hurt yourself or someone else? Patient reports no desire to harm self or others. Onset of symptoms was February 22, 2020 at 19:00. 21:36 Method Of Arrival: Ambulatory vc 21:36 Acuity: LAYA 4 vc Triage Assessment: 21:19 General: Appears in no apparent distress. uncomfortable, Behavior is cooperative, vc appropriate for age, anxious. 21:19 Pain: Complains of pain in groin, right femoral area, right inguinal area and right vc inner thigh Pain does not radiate. Historical: - Allergies: 21:42 NSAIDS; vc - Home Meds: 21:42 benazepril 5 mg oral tab 1 tab once daily [Active]; omeprazole 40 mg oral cpDR 1 cap vc once daily [Active]; - PMHx: 21:42 Hypertension; sarcoidosis; Low platelet; fatty liver; vc - Immunization history:: Adult Immunizations up to date, Last tetanus immunization: up to date < 5 years ago. - Social history:: Smoking status: Patient/guardian denies using tobacco, but has a distant history of tobacco abuse. Screenin:19 Abuse screen: Denies threats or abuse. Nutritional screening: No deficits noted. vc Tuberculosis screening: No symptoms or risk factors identified. Fall Risk None identified. Assessment: 21:20 General: Appears in no apparent distress. uncomfortable, obese, Behavior is vc cooperative, anxious. Pain: Complains of pain in right inguinal area and right femoral area and groin and right inner thigh Pain does not radiate. Pain currently is 7 out of 10 on a pain scale. Quality of pain is described as burning, sharp, Pain began suddenly, Is episodic. Neuro: Level of Consciousness is awake, alert, obeys commands, Oriented to person, place, time, situation, Appropriate for age. Cardiovascular: Capillary refill < 3 seconds Patient's skin is warm and dry. Respiratory: Airway is patent Respiratory effort is even, unlabored, Respiratory pattern is regular, symmetrical. GI: No signs and/or symptoms were reported involving the gastrointestinal system. : No signs and/or symptoms were reported regarding the genitourinary system. Derm: Wound noted right inner thigh Wound is post surgical wound. Vital Signs: 21:36 BP 137 / 100; Pulse 99; Resp 20; Temp 99.3; Pulse Ox 99% on R/A; Weight 120.2 kg; vc Height 5 ft. 10 in. (177.80 cm); 21:36 Body Mass Index 38.02 (120.20 kg, 177.80 cm) vc ED Course: 21:17 Patient arrived in ED. bp1 21:19 Arm band placed on right wrist. vc 21:19 Patient has correct armband on for positive identification. Placed in gown. Bed in low vc position. Call light in reach. Pulse ox on. NIBP on. 21:35 Ashley Guerra, BRENDA is Primary Nurse. vc 21:40 Triage completed. vc 21:42 [facility] Henderson [facility]C [facility] snw 21:42 Nixon Portillo MD is Attending Physician. snw 22:45 No provider procedures requiring assistance completed. Patient did not have IV access vc during this emergency room visit. Administered Medications: 22:44 Drug: Valium 5 mg Route: PO; ls4 02/22 03:16 Follow up: Response: No adverse reaction; Medication administered at discharge. vc 02/21 22:44 Drug: Viscous Lidocaine Liquid (4 %) 20 ml {Note: on right upper thigh crevice .} ls4 Route: Mucous Membrane; Outcome: 22:28 Discharge ordered by . anita 22:45 Discharged to home ambulatory. ls4 22:45 Condition: good 22:45 Discharge instructions given to patient, family, Instructed on discharge instructions, follow up and referral plans. medication usage, safety practices, Demonstrated understanding of instructions, follow-up care, medications. 22:48 Patient left the ED. vc Signatures: Shaunna Henderson FNP-C LEGAL SERVICES MANAGER-Csnw Fara Kamara, RN RN ls4 Ashley Guerra RN RN vc Josette Morales [facility]
--- NOTE | 2020-02-22 22:29 | EDPHYS ---
Physician Documentation [facility] Name: Lamont Levy Age: 49 yrs Sex: Male : 1970 Arrival Date: 02/22/2020 Time: 21:17 Bed 18 Private MD: ED Physician Nixon Portillo HPI: 02/21 21:56 This 49 yrs old Male presents to ER via Ambulatory with complaints of Post snw Surgical Complications. 21:56 Onset: The symptoms/episode began/occurred gradually. Associated signs and symptoms: snw Pertinent positives: pain upon attempted removal of wound packing. Modifying factors: the patient symptoms are aggravated by low platelets. The patient has not experienced similar symptoms in the past. recent surgical procedure. Historical: - Allergies: 21:42 NSAIDS; vc - Home Meds: 21:42 benazepril 5 mg oral tab 1 tab once daily [Active]; omeprazole 40 mg oral cpDR 1 cap vc once daily [Active]; - PMHx: 21:42 Hypertension; sarcoidosis; Low platelet; fatty liver; vc - Immunization history:: Adult Immunizations up to date, Last tetanus immunization: up to date < 5 years ago. - Social history:: Smoking status: Patient/guardian denies using tobacco, but has a distant history of tobacco abuse. ROS: 21:55 Constitutional: Negative for fever, chills, and weight loss, Eyes: Negative for injury, snw pain, redness, and discharge, ENT: Negative for injury, pain, and discharge, Neck: Negative for injury, pain, and swelling, Cardiovascular: Negative for chest pain, palpitations, and edema, Respiratory: Negative for shortness of breath, cough, wheezing, and pleuritic chest pain, Abdomen/GI: Negative for abdominal pain, nausea, vomiting, diarrhea, and constipation, Back: Negative for injury and pain, : Negative for injury, bleeding, discharge, and swelling, MS/Extremity: Negative for injury and deformity, Neuro: Negative for headache, weakness, numbness, tingling, and seizure, Psych: Negative for depression, anxiety, suicide ideation, homicidal ideation, and hallucinations. 21:55 Skin: Positive for pain and difficulty in removal of packing from right groin.. Exam: 21:52 Constitutional: This is a well developed, well nourished patient who is awake, alert, snw and in no acute distress. Head/Face: Normocephalic, atraumatic. Eyes: Pupils equal round and reactive to light, extra-ocular motions intact. Lids and lashes normal. Conjunctiva and sclera are non-icteric and not injected. Cornea within normal limits. Periorbital areas with no swelling, redness, or edema. ENT: Nares patent. No nasal discharge, no septal abnormalities noted. Tympanic membranes are normal and external auditory canals are clear. Oropharynx with no redness, swelling, or masses, exudates, or evidence of obstruction, uvula midline. Mucous membranes moist. Neck: Trachea midline, no thyromegaly or masses palpated, and no cervical lymphadenopathy. Supple, full range of motion without nuchal rigidity, or vertebral point tenderness. No Meningismus. Chest/axilla: Normal chest wall appearance and motion. Nontender with no deformity. No lesions are appreciated. Cardiovascular: Regular rate and rhythm with a normal S1 and S2. No gallops, murmurs, or rubs. Normal PMI, no JVD. No pulse deficits. Respiratory: Lungs have equal breath sounds bilaterally, clear to auscultation and percussion. No rales, rhonchi or wheezes noted. No increased work of breathing, no retractions or nasal flaring. Abdomen/GI: Soft, non-tender, with normal bowel sounds. No distension or tympany. No guarding or rebound. No evidence of tenderness throughout. Back: No spinal tenderness. No costovertebral tenderness. Full range of motion. MS/ Extremity: Pulses equal, no cyanosis. Neurovascular intact. Full, normal range of motion. Neuro: Awake and alert, GCS 15, oriented to person, place, time, and situation. Cranial nerves II-XII grossly intact. Motor strength 5/5 in all extremities. Sensory grossly intact. Cerebellar exam normal. Normal gait. Psych: Awake, alert, with orientation to person, place and time. Behavior, mood, and affect are within normal limits. 21:52 Skin: Appearance: Color: pale, surgical wound from iliac crest to medial thigh, packed with 4x4 's which are stuck with painful attempts at removal. Vital Signs: 21:36 BP 137 / 100; Pulse 99; Resp 20; Temp 99.3; Pulse Ox 99% on R/A; Weight 120.2 kg; vc Height 5 ft. 10 in. (177.80 cm); 21:36 Body Mass Index 38.02 (120.20 kg, 177.80 cm) vc Procedures: 22:26 Performed wound care, old packing removed, cleansed with NS, surgicel placed and abd snw pad placed on top. Assisted into clothing. Pt tolerated procedure well.. MDM: 21:45 Patient medically screened. snw 22:26 Data reviewed: vital signs, nurses notes. Data interpreted: Pulse oximetry: on room air snw is 99 %. Interpretation: normal. Counseling: I had a detailed discussion with the patient and/or guardian regarding: the historical points, exam findings, and any diagnostic results supporting the discharge/admit diagnosis, the presence of at least one elevated blood pressure reading (>120/80) during this emergency department visit, the need for outpatient follow up, to return to the emergency department if symptoms worsen or persist or if there are any questions or concerns that arise at home. Special discussion: Based on the history and exam findings, there is no indication for further emergent testing or inpatient evaluation. I discussed with the patient/guardian the need to see the general surgeon for further evaluation of the symptoms. 22:28 Response to treatment: the patient's symptoms have markedly improved after treatment. snw Administered Medications: 22:44 Drug: Valium 5 mg Route: PO; 4 02/22 03:16 Follow up: Response: No adverse reaction; Medication administered at discharge. 02/21 22:44 Drug: Viscous Lidocaine Liquid (4 %) 20 ml {Note: on right upper thigh crevice .} ls4 Route: Mucous Membrane; Disposition: 02/22 00:29 Co-signature as Attending Physician, Nixon Portillo MD I agree with the assessment and 4 plan of care. Disposition: 02/22/20 22:28 Discharged to Home. Impression: Encounter for change or removal of surgical wound dressing. - Condition is Stable. - Discharge Instructions: Incision Care, Adult. - Medication Reconciliation Form, Thank You Letter, Antibiotic Education, Prescription Opioid Use form. - Follow up: Emergency Department; When: As needed; Reason: Worsening of condition. Signatures: Shaunna Henderson, LICENSED LAND SURVEYOR-C LICENSED LAND SURVEYOR-Csnw Nixon Poritllo MD MD [facility] Fara Kamara RN RN 4 [place]cote, Ashley, RN RN vc Corrections: (The following items were deleted from the chart) 02/21 22:48 22:28 02/22/2020 22:28 Discharged to Home. Impression: Encounter for change or removal vc of surgical wound dressing. Condition is Stable. Forms are Medication Reconciliation Form, Thank You Letter, Antibiotic Education, Prescription Opioid Use. Follow up: Emergency Department; When: As needed; Reason: Worsening of condition. snw
[2020-02-22 22:54] VITALS: BP 137/100; TEMP 99.3; O2SAT 99
== END 2020-02-22 22:48 | disposition home or self-care (01) ==
LOC: ER 21:14
DX: Z48.01 Encounter for change or removal of surgical wound dressing (principal); I10 Essential (primary) hypertension; Z88.6 Allergy status to analgesic agent
CPT/HCPCS: 99283